=== PATIENT | female | born 1995 | race Hispanic/Latino ===

== ENCOUNTER 2016-10-25 16:07 | Emergency (ER) | payer OTHER ==
[~2016-10-25] VITALS: Ht 147.3 cm; Wt 57.2 kg
[2016-10-25 16:19] VITALS: BP 106/74
[2016-10-25] MEDS ORDERED: IBUPROFEN800 M1 PO (18:25)
[2016-10-25] MEDS ORDERED: CYCLOBENZAPRINE10 M1 PO (18:25)
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
== END 2016-10-25 18:44 ==
LOC: ERH 16:07
DX: S16.1XXA Strain of muscle, fascia and tendon at neck level, initial encounter (principal); S39.012A Strain of muscle, fascia and tendon of lower back, initial encounter; S63.601A Unspecified sprain of right thumb, initial encounter; V89.2XXA Person injured in unspecified motor-vehicle accident, traffic, initial encounter; Y93.9 Activity, unspecified; Y92.9 Unspecified place or not applicable
CPT/HCPCS: 73130-RT

== ENCOUNTER 2016-12-09 15:17 | Emergency (ER) | payer OTHER ==
[~2016-12-09 15:17] MED LIST: CYCLOBENZAPRINE10 M1 PO; IBUPROFEN800 M1 PO
--- NOTE | 2016-12-09 15:23 | ED PSYCHIATRIC COMPLAINT ---
History of Present Illness General Chief Complaint: Psychiatric Related Complaint Stated Complaint: BIBA FOR PSYCH EVAL Source: patient Exam Limitations: clinical condition, poor historian Vital Signs & Intake/Output Vital Signs & Intake/Output Vital Signs Date Time Temp Pulse Resp B/P B/P Pulse O2 O2 Flow FiO2 Mean Ox Delivery Rate 12/10 620 97.5 53 16 103/51 100 / 2225 97.9 58 16 105/52 100 Room Air 12/09 2115 98.2 76 17 126/74 97 Room Air 12/09 1822 98.7 86 16 128/72 98 Room Air 12/09 1559 98.6 88 21 138/82 99 Room Air ED Intake and Output 12/10 0000 12/09 1200 Intake Total 60 Output Total Balance 60 Intake, Oral 60 Allergies Coded Allergies: NO KNOWN ALLERGIES (07/30/15) Reconcile Medications Cyclobenzaprine HCl 10 MG TABLET 1 TAB PO TID SPASMS Ibuprofen 800 MG TABLET 1 TAB PO TID pain Triage Nurses Notes Reviewed? yes Onset: Abrupt Duration: unknown duration Timing: unknown HPI: 12/09/16 5:30 PM 21-year-old female presents to the emergency department for depression and suicidal ideation. Apparently the patient had sent text that stated suicidal ideation to her boyfriend's mother. In the emergency department she is nonverbal. She denies any complaints. (JOAO JAMES DO) Past History Travel History Traveled to [place] past 21 day No Medical History Any Pertinent Medical History? 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 No (JOAO JAMES DO) Review of Systems Review of Systems Constitutional: Denies: fever. EENTM: Reports: no symptoms. Respiratory: Reports: no symptoms. Cardiovascular: Reports: no symptoms. GI: Reports: no symptoms. Genitourinary: Reports: no symptoms. Musculoskeletal: Reports: no symptoms. Skin: Reports: no symptoms. Neurological/Psychological: Reports: depressed. Hematologic/Endocrine: Reports: no symptoms. Immunologic/Allergic: Reports: no symptoms. (JOAO JAMES DO) Physical Exam Physical Exam General Appearance: alert, awake, anxious, mild distress Head: atraumatic, normal appearance Eyes: Bilateral: normal appearance, PERRL, EOMI. Ears, Nose, Throat: normal pharynx, normal ENT inspection Neck: normal inspection, supple, full range of motion Respiratory: normal breath sounds, chest non-tender, no respiratory distress Cardiovascular: regular rate/rhythm Gastrointestinal: non-tender Extremities: normal range of motion Neurological/Psychiatric: awake, alert, anxious, flat Appearance/Memory/Insight: disheveled Behavoir/Eye Contact/Speech: uncooperative Thoughts/Hallucinations: normal thought pattern (in) Skin: intact, normal color SAD PERSONS SAD PERSONS Response Value Depression/Hopelessness? yes 2 Single//? yes 1 Social Support? has support 0 Total 3 SAD PERSONS Done? yes (JOAO JAMES DO) Progress Differential Diagnosis: dementia (calculated her) Plan of Care: Orders Procedure Date/time Status Regular Diet 12/10 B Active Continuous Observation Monitor 12/10 0700 Active Continuous Observation Monitor 12/10 0300 Active Continuous Observation Monitor 12/09 2300 Active Continuous Observation Monitor 12/09 1900 Active Add-on Test (ER Only) 12/09 174 Active Continuous Observation Monitor 12/09 1745 Active ETHANOL 12/09 1745 Complete COMPREHENSIVE METABOLIC PANEL 12/09 1745 Complete CBC WITHOUT DIFFERENTIAL 12/09 174 Complete ED CRISIS PSYCH CONSULT 12/09 1745 Active URINE 12/09 1728 Complete URINE DRUGS OF ABUSE 12/09 1725 Complete Laboratory Tests 12/09/16 1800: Anion Gap 10, Estimated GFR > 60, BUN/Creatinine Ratio 16.7, Glucose 82, Calcium 9.4, Total Bilirubin 0.6, AST 24, ALT 32, Alkaline Phosphatase 60, Total Protein 6.9, Albumin 4.1, Globulin 2.8, Albumin/Globulin Ratio 1.5, CBC w Diff NO MAN DIFF REQ, RBC 4.42, MCV 87.6, MCH 29.3, RDW 13.8, MPV 8.0, Gran % 74.8, Lymphocytes % 18.1 L, Monocytes % 6.2, Eosinophils % 0.2, Basophils % 0.7, Absolute Granulocytes 7.9 H, Absolute Lymphocytes 1.9, Absolute Monocytes 0.7 H, Absolute Eosinophils 0, Absolute Basophils 0.1, PUBS MCHC 33.5, Serum Alcohol < 10.0 12/09/16 1728: Urine Opiates Screen < 100.00, Methadone Screen < 40, Barbiturate Screen < 60, Ur Phencyclidine Scrn < 6.00, Amphetamines Screen < 100, U Benzodiazepines Scrn 172, Urine Cocaine Screen < 50, Urine Cannabis Screen < 5.00, Urine Test NEGATIVE Initial ED EKG: none (JOAO JAMES DO) Hand-Off Endorsed To: JOAO AN MD Endorsed Time: 0700 Pending: other (crisis re-eval) (CHIO HASTINGS,HALLEY) Comments: 12/10/2016 8:28:02 AM patient signed out to me by Dr. Barroso at shift change lead. Patient is being evaluated by crisis and felt stable for outpatient management. (JOAO AN MD) Departure Departure Condition: Stable Referrals: UNKNOWN (PCP/Family) Departure Forms: Customer Survey General Discharge Information Comments Crisis consultation requested 12/09/16 7 PM PATIENT SIGNED OUT TO DR BARROSO AT 7 PM (JOAO JAMES DO) Departure Disposition: HOME OR SELF CARE Clinical Impression Primary Impression: Depression Qualifiers: Depression Type: unspecified Qualified Code: F32.9 - Major depressive disorder, single episode, unspecified Secondary Impressions: Suicide ideation Additional Instructions: Follow-up as outlined by the department clinician. Notify your primary care doctor of this emergency department visit and treatment plan. Return if any concerns or sudden worsening. If you do not have a primary care physician please contact [facility] and arrange for general medical evaluation as soon as possible. (JUVE HASTINGS,JOAO Snell) Critical Care Note Critical Care Note Critical Care Time: 30-74 min (JOAO JAMES DO)
[2016-12-09 18:12] LABS: ABSOLUTE BASOPHIL COUNT 0.1 /CUMM (0.0-0.2); ABSOLUTE EOSINOPHIL COUNT 0 /CUMM (0.0-0.7); ABSOLUTE GRANULOCYTE CT 7.9 /CUMM (1.4-6.5); ABSOLUTE LYMPH COUNT 1.9 /CUMM (1.2-3.4); ABSOLUTE MONOCYTE COUNT 0.7 /CUMM (0.10-0.60); BASOPHIL % 0.7 % (0.0-2.0); EOSINOPHIL % 0.2 % (0-5); GRANULOCYTE % 74.8 % (42.2-75.2); HEMATOCRIT 38.8 % (37-47); MEAN CORPUSCULAR HGB 29.3 PG (27.0-31.0); MEAN CORPUSCULAR HGB CONC 33.5 G/DL (33.0-37.0); MEAN CORPUSCULAR VOLUME 87.6 FL (81.0-99.0); PLATELET COUNT 388 /CUMM (130-400); RBC DISTRIBUTION WIDTH 13.8 % (11.5-14.5); RED BLOOD CELL CT 4.42 /CUMM (4.20-5.40); WHITE BLOOD CELL COUNT 10.5 /CUMM (4.8-10.8)
--- NOTE | 2016-12-09 21:01 | ED PSYCH CRISIS CONSULTATION ---
Crisis Consult Basic Assessment Date of Consult: 12/09/16 Responsible Person/Accompanied By: TERRI on PEER Insurance Authorization: Insurance #1: Insurance name: [employer] beqom Phone number: Policy number: [id number] Group number: [id number] Authorization number: ED Provider: Patient's ED Provider: JOAO JAMES DO Primary Care Physician: Patient's PCP: UNKNOWN PCP's Phone Number: Current Psychiatrist: None Chief Complaint: Psychiatric Related Complaint Patient's Quote: "His mother, araceli tamayo." Present Illness: The patient is a 21 year old single, female presenting to the ED, via ambulance, on a PEER, after sending text messages that were suicidal in nature. Per the PEER the patient was sending messages to "her boyfriends mother that the mother needs to let go of her son, that she is ruining both their lives and forcing her to kill herself, she also states that when she is "" it is going to be on her (the mother)." The patient spoke in a soft voice and was tearful at times. She appeared to be agitated that she was sent to the ED and does not feel that it is fair, as she states, " I did not do anything." She reports that she has been dating this man, off and on for about 5 years and recently his mother stated that they could not see each other anymore. The patient reports that she was staying with her boyfriend and his mother, up until recently and notes that "his mother just decided that they couldn't talk anymore and changed his phone number." The patient reports that she raised herself and that she has had very little family support. She notes that she has been staying between his house and her grandmothers house. She denies any history of mental health or substance abuse issues or subsequent treatment. She states that she was sent to [facility] at [place] in the past, for a similar situation, noting they let her go after about 4 hours. She denies any symptoms of depression and states that she is "sad," because of the ending of their relationship. She denies any drug or alcohol abuse and her toxicology screen was negative. She denies any current or history of SI / HI / AH / VH. She states that she does not want to and would never hurt herself. She states that she is concerned about attending work tomorrow and taking care of a flat tire, stating " is that what someone who wants to kill themselves, worries about?" She would like to go home and does not feel that she needs any treatment at this time. SUZI spoke to the patients "best friend," Eden Aguayo ([phone]), for collateral information. Eden notes that she has been friends with the patient for the last 7-8 years and that they were roommates for 2 of those years. Eden states that she has never known the patient to have any mental health issues or treatment. Eden states that the patient has never been violent towards herself or anyone else. Eden notes that the patient has made suicidal statements in the past, noting "she just says things," however has never acted on these statements. Eden notes that the patients " boyfriends mother is crazy." Eden does not find the patient to be a danger to herself and states that she is always welcome to live with her if needed. Patient's Address: [address] [place] [address] Other Phone Number: Who Do You Live With? Other (see notes) (grandmothers vs. boyfriends) Family/Informants Interviewed: Best Friend Eden Olivier ([phone]). Allergies - Coded Allergies: NO KNOWN ALLERGIES (07/30/15) Current Medications - Scheduled Medications Cyclobenzaprine HCl 10 MG TABLET 1 TAB PO TID SPASMS #20 TAB Prescribed by BELKYS FERNANDEZ PA-C on 10/25/16 Ibuprofen 800 MG TABLET 1 TAB PO TID pain #30 TAB Prescribed by BELKYS FERNANDEZ PA-C on 10/25/16 Laboratory Results: Laboratory Tests 12/09/16 1800: Anion Gap 10, Estimated GFR > 60, BUN/Creatinine Ratio 16.7, Glucose 82, Calcium 9.4, Total Bilirubin 0.6, AST 24, ALT 32, Alkaline Phosphatase 60, Total Protein 6.9, Albumin 4.1, Globulin 2.8, Albumin/Globulin Ratio 1.5, CBC w Diff NO MAN DIFF REQ, RBC 4.42, MCV 87.6, MCH 29.3, RDW 13.8, MPV 8.0, Gran % 74.8, Lymphocytes % 18.1 L, Monocytes % 6.2, Eosinophils % 0.2, Basophils % 0.7, Absolute Granulocytes 7.9 H, Absolute Lymphocytes 1.9, Absolute Monocytes 0.7 H, Absolute Eosinophils 0, Absolute Basophils 0.1, PUBS MCHC 33.5, Serum Alcohol < 10.0 12/09/16 1728: Urine Opiates Screen < 100.00, Methadone Screen < 40, Barbiturate Screen < 60, Ur Phencyclidine Scrn < 6.00, Amphetamines Screen < 100, U Benzodiazepines Scrn 172, Urine Cocaine Screen < 50, Urine Cannabis Screen < 5.00, Urine Test NEGATIVE (MARJ DELATORRE LCSW) Basic Assessment Primary Care Physician: Patient's PCP: UNKNOWN PCP's Phone Number: (KIM HOWELL LCSW) Past History Past Medical History Neurological: NONE EENT: NONE Cardiovascular: NONE Respiratory: asthma Gastrointestinal: NONE Hepatic: NONE Renal: NONE Musculoskeletal: NONE Psychiatric: NONE Endocrine: NONE Blood Disorders: NONE Cancer(s): NONE 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 She is working and is concerned about attending. Physical Limitations (Interventions): None noted Psychiatric Treatment History Psych Treatment Psychiatric Treatment No Inpatient Treatment No Outpatient Treatment No Location of Treatment N/A Reason for Treatment N/A Dates of Treatment N/A Response to Treatment N/A Diagnosis by History: N/A Substance Use/Abuse History Drug Use/Abuse Substances Used/Abused No First Use N/A Last Used N/A How much used/taken N/A How often N/A For how long N/A Route of use N/A Substance Abuse Treatment Substance Abuse Treatment Past Substance Abuse [place] No Inpatient Treatment No Outpatient Treatment No Location of Treatment N/A Reason for Treatment N/A Dates of Treatment N/A Response to Treatment N/A Comments: N/A (MARJ DELATORRE LCSW) Current Mental Status Mental Status Orientation: Person, Place, Situation Affect: Sad Speech: Soft Neuro-vegetative: WNL Appearance Appearance- Dress/Hygiene: The patient was lying in bed, with hair in ponytail and minimal eye contact. She was tearful at times. Behaviors Thought Process: WNL Thought Content: WNL Memory: WNL Insight: WNL SI/HI Risk Assessment Past Suicidal Ideation/Attempts No Current Suicidal Ideation/Att No Past Homicidal Ideation/Att: No Current Homicidal Ideation/Attempts No Degree of Intent: Per PEER she made statements that were suicidal in nature. The patient denies any current or history of suicidal ideations or attemtpts. Per her friend Eden the patient has made statements in the past, however has never acted on them and she does not believe that she would act on them. Gravely Disabled: N/A Risk Factors: age (under 24/over 65), limited support Lethality Ratin PTSD Checklist PTSD Done? patient declined (Pt. denies trauma or abuse hx.) ED Management Sitter: Yes Restraints: No (MARJ DELATORRE LCSW) DSM5/PS Stressors/Medical Prob Diagnosis' (DSM 5, Stressors, Medical): F43.21 Adjustment Disorder, with depressed mood. Current GAF: 51 Comments: N/A (MARJ DELATORRE LCSW) Departure Disposition Psych Medical Clearance Date: 12/09/16 Medically Cleared at: 1906 Time Started: 1909 Time Ended: 2029 Psychiatrist Consulted: Casey HASTINGS, Disposition Established: 12/09/16 Time Disposition Established: 2029 Plan for Disposition - Modality: Hold over for reassessment in the AM Contact: N/A Telephone: N/A Rationale for Disposition: The patient presents to the ED, on a PEER after sending text messages that were suicidal in nature. The patient explained that they were sent in reference to her boyfriends mother, stoppig all communication between her and her boyfriend. The patient denies any symptoms of depression, SI, HI , AH, and VH. She reports being sad, as she has been seeing this man for the last 5 years and is losing her boyfriend and her best friend. Case discussed with Dr. Peña and he would like to hold her over for reassessment in the AM. Additional Instructions: N/A Referrals UNKNOWN (PCP/Family) (MARJ DELATORRE LCSW) Disposition Psych Medical Clearance Date: 12/10/16 Medically Cleared at: 0800 Time Started: 799 Time Ended: 824 Psychiatrist Consulted: Ana Hensley MD Date Disposition Established: 12/10/16 Time Disposition Established: 824 Plan for Disposition - Modality: resources provided Facility: Patient to Arrange Rationale for Disposition: Pt continues to deny SI and is forward thinking as she is eager to get to work. She declines a referral for out pt tx but accepted a list of resources. (LYNDA CAMILO,KIM) Addendum Addendum Crisis re-valuated pt this morning. she continues to deny SI and is concerned about getting to work. She declined a referral for out pt tx but did accept a list of resources. Case reviewed with Dr. Hensley of Psychiatry who approved discharge. Pt was provided with a letter for her job. (LYNDA CAMILO,KIM)
[2016-12-10 08:55] VITALS: BP 122/72
== END 2016-12-10 08:54 ==
LOC: ERH 15:17
PROVIDERS: Emergency Medicine
DX: F32.9 Major depressive disorder, single episode, unspecified (principal); R45.851 Suicidal ideations
CPT/HCPCS: 80307; 81025; G0463; G0480